=== PATIENT | male | born 1980 | race Caucasian/White ===

== ENCOUNTER 2016-06-05 21:37 | Emergency (ER) | payer SELFPAY ==
--- NOTE | 2016-06-05 21:51 | ED.PDOC ---
History of Present Illness - General Chief Complaint: Upper Extremity Injury Stated Complaint: wood or metal in hand Time Seen by Provider: 06/05/16 21:46 Source: patient Exam Limitations: no limitations - History of Present Illness Initial Comments: Patient presents after he was working with a chisel and wood and some pieces ejected from his work and entered into the back of his left hand. He says he felt a "shock" pain and that it radiated up his forearm. He is not sure if it was metal or wood that struck his hand. Has some mild tenderness on the back of his hand that he says is like little electrical shocks. No other complaints. Timing/Duration: 1 hour Severity: mild Improving Factors: nothing Worsening Factors: nothing Associated Symptoms: denies symptoms Allergies/Adverse Reactions: Allergies NO KNOWN ALLERGY Allergy (Unverified 03/03/12 22:11) Review of Systems - Review of Systems Constitutional: States: no symptoms reported EENTM: States: no symptoms reported Respiratory: States: no symptoms reported Cardiology: States: no symptoms reported Gastrointestinal/Abdominal: States: no symptoms reported Genitourinary: States: no symptoms reported Musculoskeletal: States: see HPI Skin: States: see HPI Neurological: States: no symptoms reported Endocrine: States: no symptoms reported Hematologic/Lymphatic: States: no symptoms reported Family Medical History - Family History Father Family History: Unknown Living Status: Still Living Physical Exam - Physical Exam Respiratory: lungs clear Cardiovascular/Chest: regular rate, rhythm Gastrointestinal/Abdominal: normal bowel sounds, non tender, soft Neurologic: no motor/sensory deficits Skin Exam: other - two punctate lesions on the dorsum of the left hand near the base of the 5th metacarpal. Hemostatic. No foreign objects visible. Progress - Progress Progress: 06/05/16 22:11 3 view of the left hand showed a metallic foreign body in the soft tissue of the left hand. Departure - Departure Clinical Impression: Foreign body (FB) in soft tissue Disposition: Discharge to Home or Self Care Condition: Good Departure Forms: ED Discharge - Pt. Copy, Patient Portal Self Enrollment Diet: resume usual diet Activity: increase activity as tolerated Additional Instructions: We are providing you with the number for two different surgeons. Please call them tomorrow morning to see about an appointment for removing a piece of metal from your left hand. If they cannot do the surgery, please ask them for the number of a surgeon who might be able to. Use ice and ibuprofen for pain control.
[2016-06-05 21:52] VITALS: O2SAT 98
[2016-06-05] MEDS ORDERED: TETANUS,DIPHTHERIA,PERTUSSIS 1 EA SYG IM ONE (21:52)
--- NOTE | 2016-06-05 22:30 | RAD ---
PROCEDURE: Hand,Left 3 Views CLINICAL HISTORY: possible metal fragments INDICATION: Same as above COMPARISON: None . TECHNIQUE: 3.0 Views of the left hand were done. FINDINGS: There is no evidence of acute fractures or dislocation involving the bones of the left wrist and hand. There is an old healed fracture in the distal aspect of the fifth metacarpal bone. There is presence of a 6 mm long linear radiopaque foreign body projected at the level of the scaphoid trapezium joint There is no visualization of chondrocalcinosis in the region of the wrist joint. The wrist joint arches are well-maintained. There is no evidence of ulnar variance. There are no focal erosive bony changes. The joint spaces of the hand and the wrist are relatively well-maintained. The bone mineralization is normal for patient's age and sex. The soft tissues are radiographically unremarkable. If the wrist pain persists, repeat films can be done in 7-10 days interval to rule out occult fractures. Alternatively an MRI of the wrist can be obtained. IMPRESSION: There is an old healed fracture in the distal aspect of the fifth metacarpal bone. There is presence of a 6 mm long linear radiopaque foreign body projected at the level of the scaphoid trapezium joint Place of interpretation: [facility]iology. Electronically signed by: Mati Dhillon MD 06/05/2016 10:29 PM CDT
[2016-06-05 22:42] VITALS: BP 128/74; TEMP 97.6
== END 2016-06-05 22:42 | disposition home or self-care (01) ==
LOC: ER 21:37
DX: S61.442A Puncture wound with foreign body of left hand, initial encounter (principal); Z23 Encounter for immunization; W45.8XXA Other foreign body or object entering through skin, initial encounter; W27.8XXA Contact with other nonpowered hand tool, initial encounter

== ENCOUNTER 2016-12-26 00:29 | Emergency (ER) | payer SELFPAY ==
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
[2016-12-26 02:05] VITALS: BP 128/78; TEMP 98; O2SAT 96
== END 2016-12-26 02:00 | disposition home or self-care (01) ==
LOC: ER 00:29
DX: S82.841A Displaced bimalleolar fracture of right lower leg, initial encounter for closed fracture (principal); Z87.891 Personal history of nicotine dependence; X58.XXXA Exposure to other specified factors, initial encounter; Y92.89 Other specified places as the place of occurrence of the external cause

== ENCOUNTER → 2017-01-02 | Outpatient (CLI) | payer OTHER ==
--- NOTE | 2017-01-03 01:17 | RAD ---
EXAM DESCRIPTION: Ankle,Right 3 Views CLINICAL HISTORY: ANKLE PAIN COMPARISON: 12/26/2016 FINDINGS/IMPRESSION: Redemonstrated distal minimally displaced comminuted right fibular fracture. Unchanged medial malleolus fracture. Tibial plafond and talar dome are intact. Normal osseous mineralization. Electronically signed by: Shawn Méndez 01/03/2017 1:16 AM CDT
== END | disposition home or self-care (01) ==
LOC: RAD 08:02
PROVIDERS: ATTEND Orthopaedic Surgery
DX: M25.571 Pain in right ankle and joints of right foot (principal)

== ENCOUNTER 2018-08-27 14:29 | Emergency (ER) | payer SELFPAY ==
[2018-08-27] MEDS ORDERED: TETRACAINE HCL 0.5% OPHTH SOL 1 DROP ONE (15:17)
[2018-08-27] MEDS ORDERED: ONDANSETRON ODT 8 MG TAB SL ONE (15:24)
[2018-08-27] MEDS ORDERED: MORPHINE SULFATE INJ 10 MG/ML VIAL IM ONE (15:24)
[2018-08-27] MEDS ORDERED: TOBRAMYCIN SULF 0.3 % OPHT SOL 1 DROP LEFT_EYE ONE ×2 (15:24→18:24)
[2018-08-27] MEDS ORDERED: TETRACAINE HCL 0.5% OPHTH SOL 1 DROP LEFT_EYE ONE (15:24)
--- NOTE | 2018-08-27 15:28 | ED.PDOC ---
History of Present Illness - General Chief Complaint: Eye Problems Stated Complaint: Left eye swollen and red Time Seen by Provider: 08/27/18 15:13 Source: patient, family Exam Limitations: no limitations - History of Present Illness Initial Comments: 38 yo male c/o left eye pain & drainage. Fell asleep with his contact lenses in last night. Yesterday was working in the yard & rubbed his left eye with his gloves. Blurred vision now. Timing/Duration: this morning Severity: severe EENT Location: eye (L) Prearrival Treatment: no prearrival treatment Improving Factors: nothing Worsening Factors: other - eye opening Associated Symptoms: denies symptoms Allergies/Adverse Reactions: Allergies NO KNOWN ALLERGY Allergy (Unverified 08/27/18 14:46) Home Medications: Ambulatory Orders Acetaminophen W/ Codeine [Tylenol W/ CODEINE #3] 1 ea PO Q8HRS PRN 5 Days #15 08/27/18 Moxifloxacin HCl (Ophth) [Vigamox] 1 drop LEFT_EYE Q4H #3 ml 08/27/18 Tobramycin Sulf 0.3 % Ophth [Tobrex Opthalmic Ointment] 1 inch LEFT_EYE Q4H #1 tube 08/27/18 Review of Systems - Review of Systems Constitutional: States: no symptoms reported, other - Tetanus UTD EENTM: States: eye pain, blurred vision, tearing Skin: States: no symptoms reported Neurological: States: no symptoms reported Past Medical History (General) - Patient Medical History Hx Seizures: No Hx Stroke: No Hx Dementia: No Hx Asthma: No Hx of COPD: No Hx Cardiac Disorders: No Hx Congestive Heart Failure: No Hx Pacemaker: No Hx Hypertension: No Hx Thyroid Disease: No Hx Diabetes: No Hx Gastroesophageal Reflux: No Hx Renal Disease: No Hx Cancer: No Hx of HIV: No Hx Hepatitis C: No Hx MRSA: No Surgical History: no surgical history - Vaccination History Hx Tetanus, Diphtheria Vaccination: Yes Hx Influenza Vaccination: No Hx Pneumococcal Vaccination: No - Social History Hx Tobacco Use: Yes Hx Alcohol Use: Yes Hx Substance Use: No Hx Substance Use Treatment: No Hx Depression: No - Female History Patient is a Female of Child Bearing Age (10 -59 yrs old): No Patient : No Family Medical History - Family History Father Family History: Unknown Living Status: Still Living Physical Exam - Physical Exam General Appearance: Alert, Anxious, Other - in pain Eye Exam: left abnormal pupil - small, fixed, left other - conjunctivitis with discharge. No corneal ulcer seen. Contact lens extracted by me. Nasal Exam: normal inspection Neck: supple Cardiovascular/Respiratory: no respiratory distress Skin Exam: normal color, warm/dry Progress - Progress Progress: 08/27/18 17:58 Pain improved. Re-examined. No obvious corneal ulcer seen. VA: OD 20/20; OS can count fingers at 10 feet. Can't see the eye chart. 08/27/18 18:[address] James - ophthalmology. He will see him in the AM. Start alternating Vigamox & Tobrex q 2 hrs. Departure - Departure Clinical Impression: Acute eye pain, Iritis of left eye Conjunctivitis Qualifiers: Conjunctivitis type: acute Acute conjunctivitis type: bacterial Laterality: left Qualified Code(s): H10.32 - Unspecified acute conjunctivitis, left eye Time of Disposition: 18:26 Disposition: Discharge to Home or Self Care Condition: Fair Departure Forms: ED Discharge - Pt. Copy, Patient Portal Self Enrollment Instructions: DI for Eye Pain, Conjunctivitis (Pinkeye) (DC), Uveitis Prescriptions: Acetaminophen W/ Codeine [Tylenol W/ CODEINE #3] 1 ea PO Q8HRS PRN 5 Days #15 PRN Reason: Moderate Pain Moxifloxacin HCl (Ophth) [Vigamox] 1 drop LEFT_EYE Q4H #3 ml Tobramycin Sulf 0.3 % Ophth [Tobrex Opthalmic Ointment] 1 inch LEFT_EYE Q4H #1 tube Home Medications: Ambulatory Orders Acetaminophen W/ Codeine [Tylenol W/ CODEINE #3] 1 ea PO Q8HRS PRN 5 Days #15 08/27/18 Moxifloxacin HCl (Ophth) [Vigamox] 1 drop LEFT_EYE Q4H #3 ml 08/27/18 Tobramycin Sulf 0.3 % Ophth [Tobrex Opthalmic Ointment] 1 inch LEFT_EYE Q4H #1 tube 08/27/18 Additional Instructions: Follow up with Dr. Matt James at 10 AM tomorrow morning. [address], [place] If something happens & you can't get there, go to the nearest ER or call us for help.
[2018-08-27 18:49] VITALS: BP 135/86; TEMP 98.1; O2SAT 96
== END 2018-08-27 18:35 | disposition home or self-care (01) ==
LOC: ER 14:29
DX: H20.00 Unspecified acute and subacute iridocyclitis (principal); H10.32 Unspecified acute conjunctivitis, left eye; Z87.891 Personal history of nicotine dependence

== ENCOUNTER 2020-04-06 15:26 | Emergency (ER) | payer SELFPAY ==
--- NOTE | 2020-04-06 15:37 | ED.PDOC ---
History of Present Illness - General Chief Complaint: GI Problem Stated Complaint: rectal bleeding Time Seen by Provider: 04/06/20 15:36 - History of Present Illness Initial Comments: Patient complains of rectal bleeding since yesterday. Yesterday he passed multiple episodes of bright red blood. This is stopped today. Patient does not have anal pain. Stools have been soft or liquid. Patient denies abdominal pain at present but did have mild epigastric pain yesterday. He denies nausea or vomiting. Patient has had similar symptoms of lesser severity and frequency since the year 2005. He reports a slight seepage sometimes of a clear material or bloody material after wiping after using the stool. Patient does admit to alcohol consumption about 12 beers a night sometimes 3 times a week or more. He drank heavily for 4 days and has not had anything to drink for the last 2 days. Patient does not take any nonsteroidal anti-Inflammatory medications andThese problems in the past.Has never seen a Doctor for these problems in the past. Patient denies dizziness, lightheadedness, syncope or near syncope. Timing/Duration: other - 2 days Severity: moderate Improving Factors: nothing Allergies/Adverse Reactions: Allergies NO KNOWN ALLERGY Allergy (Unverified 08/27/18 14:46) Home Medications: Ambulatory Orders NK 04/06/20 Review of Systems - Review of Systems Constitutional: States: no symptoms reported EENTM: States: no symptoms reported Respiratory: States: no symptoms reported Cardiology: States: no symptoms reported Gastrointestinal/Abdominal: States: see HPI Genitourinary: States: no symptoms reported Musculoskeletal: States: no symptoms reported Skin: States: no symptoms reported Neurological: States: no symptoms reported Endocrine: States: no symptoms reported Hematologic/Lymphatic: States: no symptoms reported Past Medical History (General) - Patient Medical History Hx Seizures: No Hx Stroke: No Hx Dementia: No Hx Asthma: No Hx of COPD: No Hx Cardiac Disorders: No Hx Congestive Heart Failure: No Hx Pacemaker: No Hx Hypertension: No Hx Thyroid Disease: No Hx Diabetes: No Hx Gastroesophageal Reflux: No Hx Renal Disease: No Hx Cancer: No Hx of HIV: No Hx Hepatitis C: No Hx MRSA: No - Vaccination History Hx Tetanus, Diphtheria Vaccination: Yes Hx Influenza Vaccination: No Hx Pneumococcal Vaccination: No - Social History Hx Tobacco Use: Yes Hx Alcohol Use: Yes Hx Substance Use: No Hx Substance Use Treatment: No Hx Depression: No - Female History Patient : No Family Medical History - Family History Father Family History: Unknown Living Status: Still Living Physical Exam - Physical Exam General Appearance: Alert, Comfortable Eye Exam: bilateral normal Ears, Nose, Throat: normal ENT inspection, normal pharynx Neck: non-tender, full range of motion Respiratory: chest non-tender, lungs clear Cardiovascular/Chest: normal peripheral pulses, regular rate, rhythm Gastrointestinal/Abdominal: normal bowel sounds, non tender, soft Rectal Exam: hemorrhoids, other - Exam performed with nurse grill cook present: Multiple large tender nonthrombosed hemorrhoids, no active bleeding, no blood in anal vault. Back Exam: normal inspection, no CVA tenderness, no vertebral tenderness Extremity: normal range of motion Neurologic: ux design lead II-XII nml as tested, normal mood/affect, oriented x 3 Skin Exam: normal color, warm/dry Lymphatic: no adenopathy Progress - Progress Progress: 04/06/20 16:43 04/06/20 16:45 All findings discussed with patient and his . He is amenable to outpatient follow-up. He understands the need to discontinue alcohol intake. Medical decision making 40-year-old male with a history of bright red rectal bleeding which is now completely subsided. Patient has complaints of some upper abdominal pain which is likely gastritis due to alcohol. There is no evidence of acute pancreatitis. There is no ongoing active bleeding. Vital signs are normal and stable and there is no evidence of blood loss on CBC. Patient is to follow-up with a primary care doctor for GI referral and endoscopy as indicated. He will return for worsening bleeding or pain. - Results/Orders Results/Orders: Laboratory Results - last 24 hr 04/06/20 04/06/20 04/06/20 15:59 15:59 15:59 WBC 5.4 RBC 4.58 L Hgb 14.3 Hct 41.9 L MCV 91.4 MCH 31.3 H MCHC 34.2 RDW 13.4 Plt Count 150 MPV 7.8 Absolute Neuts (auto) 3.10 Absolute Lymphs (auto) 1.60 Absolute Monos (auto) 0.60 Absolute Eos (auto) 0.10 Absolute Basos (auto) 0.00 Neutrophils % 57.1 Lymphocytes % 29.2 Monocytes % 10.5 H Eosinophils % 2.5 Basophils % 0.7 PT 9.6 INR < 1.00 PTT (SP) 25.2 Sodium 139 Potassium 3.9 Chloride 100 L Carbon Dioxide 27 Anion Gap 15.9 BUN 14 Creatinine 0.88 BUN/Creatinine Ratio 15.9 Random Glucose 112 H Serum Osmolality 278.8 Calcium 9.2 Total Bilirubin 0.6 AST 31 ALT 25 Alkaline Phosphatase 52 Serum Total Protein 7.2 Albumin 4.1 Globulin 3.1 Albumin/Globulin Ratio 1.3 Lipase 30 Vital Signs - 24 hr 04/06/20 15:35 Temperature 98.9 F Pulse Rate [ 72 Right Brachial] Respiratory 16 Rate Blood Pressure 134/77 [Right Arm] O2 Sat by Pulse 98 Oximetry Departure - Departure Clinical Impression: Rectal bleeding, Gastritis and duodenitis, Hemorrhoids, Abdominal pain, Possible peptic ulcer Time of Disposition: 16:47 Disposition: Discharge to Home or Self Care Condition: Good Departure Forms: ED Discharge - Pt. Copy, Patient Portal Self Enrollment Instructions: Bloody Stools, Adult (DC), Hemorrhoids (DC), Gastritis (DC) Diet: other - Discontinue alcohol intake, no beer Home Medications: Ambulatory Orders NK 04/06/20 Comments: Stop drinking all alcoholic beverages. Take 2 [id number] Pepcid pills for a total of 20 mg twice a day. See a primary care physician for a gastroenterology referral. If you develop worsening abdominal pain or increased Rectal bleeding which is very heavy, particularly if associated with dizziness then return to the emergency department. Do not take ibuprofen or aspirin for pain. Only Tylenol is allowed.
[2020-04-06 15:39] VITALS: O2SAT 98
[2020-04-06 16:59] VITALS: BP 120/74; TEMP 98.6
== END 2020-04-06 16:50 | disposition home or self-care (01) ==
LOC: ER 15:26
DX: K29.81 Duodenitis with bleeding (principal); K29.71 Gastritis, unspecified, with bleeding; K64.9 Unspecified hemorrhoids